=== PATIENT | female | born 1980 | race American Indian/Alaskan Native ===

== ENCOUNTER 2016-12-07 12:23 | Emergency (ER) | payer BC ==
[2016-12-07 12:31] VITALS: RESP 18
[2016-12-07 13:00] LABS: BASO % 0.2 % (0.0-2.0); EOS # 0.1 K/uL (0.0-0.7); EOS % 0.6 % (0.0-4.0); HEMATOCRIT 32.5 % (34.0-47.0); LYMPH # 0.8 K/uL (1.0-4.3); LYMPH % 9.9 % (20.0-40.0); MEAN CORPUSCULAR HEMOGLOBIN 26.4 pg (27.0-31.0); MEAN CORPUSCULAR HGB CONC 32.6 g/dL (33.0-37.0); MEAN PLATELET VOLUME 9.8 fl (7.2-11.7); MONO # 0.6 K/uL (0.0-0.8); MONO % 6.9 % (0.0-10.0); NEUT # 6.7 K/uL (1.8-7.0); NEUT % 82.4 % (50.0-75.0); NRBC % 0.1 % (0.0-0.0); PLATELET COUNT 165 K/uL (130-400); RED CELL DISTRIBUTION WIDTH 15.8 % (11.5-14.5); WHITE BLOOD COUNT 8.2 K/uL (4.8-10.8)
[2016-12-07 13:07] LABS: RBC URINE < 1 /hpf (0-3); URINE BACTERIA RARE (<OCC); URINE BILIRUBIN NEGATIVE (NEGATIVE); URINE BLOOD NEGATIVE (NEGATIVE); URINE COLOR STRAW (YELLOW); URINE GLUCOSE (UA) NEG (Normal); URINE KETONE NEGATIVE (NEGATIVE); URINE LEUKOCYTE ESTERASE NEG Leu/uL (Negative); URINE PROTEIN NEGATIVE (NEGATIVE); URINE UROBILINOGEN 0.2-1.0 mg/dL (0.2-1.0); WBC URINE 1 /hpf (0-5)
[2016-12-07 13:26] LABS: ALKALINE PHOSPHATASE 84 U/L (38-126); ALT/SGPT 44 U/L (9-52); AST/SGOT 31 U/L (14-36); BILIRUBIN,TOTAL 0.2 mg/dl (0.2-1.3); BLOOD UREA NITROGEN 6 mg/dl (7-17); CARBON DIOXIDE 26 mmol/L (22-30); CHLORIDE 104 mmol/L (98-107); GFR AFRICAN-AMERICAN > 60; GLUCOSE,RANDOM 79 mg/dL (65-105); POTASSIUM 3.9 MMOL/L (3.6-5.0); SODIUM 135 mmol/l (132-148); TOTAL PROTEIN 7.2 G/DL (6.3-8.2)
[2016-12-07 14:00] LABS: EOSINOPHIL 1 % (0-7); NEUTROPHIL 89 % (42-75); TOTAL CELLS COUNTED 100
[2016-12-07 14:02] LABS: LARGE PLATELETS PRESENT
--- NOTE | 2016-12-07 14:20 | ED PDOC ---
HPI: General Adult Time Seen by Provider: 12/07/16 12:44 Chief Complaint (Nursing): Dizziness/Lightheaded Chief Complaint (Provider): Dizziness History Per: Patient History/Exam Limitations: no limitations Onset/Duration Of Symptoms: Hrs Have you had recent travel within the past 21 days to any of the following countries: [place], [place], [place] or [place]?: No Current Symptoms Are (Timing): Still Present Additional Complaint(s): Lakeisha Hopper, a 36 year old female, who is 24 weeks presents to the ED for dizziness and sweats. The patient states that earlier today she was commuting [facility] by bus. She goes on to state that her bus was late and she was standing in the sun for hours and when the bus finally came they experienced heavy traffic. The patient reports that while on the bus she began to feel dizzy, sweaty and also felt as though she was going to pass out. Upon arrival to the hospital the patient was seen in labor and delivery and was cleared. The patient does appreciate movement and denies vaginal bleeding. Also denies vomiting headache, abdominal pain, chest pain and SOB. The patient has had one prior full term which had no complications and is currently only taking vitamins. Past Medical History Reviewed: Historical Data, Nursing Documentation, Vital Signs Vital Signs: Last Vital Signs Temp 98.4 F 12/07/16 12:27 Pulse 94 H 12/07/16 12:27 Resp 18 12/07/16 12:27 BP 128/78 12/07/16 12:27 Pulse Ox 98 12/07/16 14:43 - Medical History PMH: No Chronic Diseases - Surgical History Surgical History: No Surg Hx - Family History Family History: States: Unknown Family Hx - Home Medications Home Medications: Ambulatory Orders Medication Instructions Recorded Vit No.126/Iron/Folic 1 tab PO DAILY 12/07/16 [Classic Tablet] - Allergies Allergies/Adverse Reactions: Allergies Allergy/AdvReac Type Severity Reaction Status Date / Time No Known Allergies Allergy Verified 12/07/16 12:40 Review of Systems Constitutional: Positive for: Sweats Cardiovascular: Negative for: Chest Pain Respiratory: Negative for: Shortness of Breath Gastrointestinal: Negative for: Vomiting, Abdominal Pain Genitourinary Female: Negative for: Vaginal Bleeding Neurological: Positive for: Dizziness. Negative for: Headache Physical Exam - Reviewed Nursing Documentation Reviewed: Yes Vital Signs Reviewed: Yes - Physical Exam Appears: Positive for: Non-toxic, No Acute Distress Head Exam: Positive for: ATRAUMATIC, NORMOCEPHALIC Skin: Positive for: Normal Color, Warm, Dry Eye Exam: Positive for: Normal appearance, EOMI, PERRL ENT: Positive for: Normal ENT Inspection Neck: Positive for: Normal, Painless ROM, Supple Cardiovascular/Chest: Positive for: Regular Rate, Rhythm, Chest Non Tender. Negative for: Tachycardia Respiratory: Positive for: Normal Breath Sounds, Accessory Muscle Use. Negative for: Wheezing, Respiratory Distress Gastrointestinal/Abdominal: Positive for: Normal Exam, Bowel Sounds, Soft. Negative for: Tenderness, Guarding, Rebound Pelvic Exam: Positive for: Other (Fundus is above umbilicus.) Back: Positive for: Normal Inspection. Negative for: L CVA Tenderness, R CVA Tenderness Extremity: Positive for: Normal ROM. Negative for: Tenderness, Deformity, Swelling Lymphatic: Positive for: Normal Exam Neurologic/Psych: Positive for: Alert, Oriented, Gait - Laboratory Results Result Diagrams: 12/07/16 12:50 12/07/16 12:50 - ECG O2 Sat by Pulse Oximetry: 98 (RA) Pulse Ox Interpretation: Normal Medical Decision Making Medical Decision Makin:44 Initial Impression: 36 year old female presenting with dizziness and sweats Initial Plan: * EKG * CMP * CBC * Urinalysis * Reevaluation Patient's bloodwork ad urinalysis only revealed mild anemia without prior value to compare. EKG performed, normal sinus at 78 and sinus arrhythmia at normal intervals. Patient received IV fluids and cardiac monitoring for 2 hours without incident. No signs of acute neurological, cardiac, infectious or obstetric emergency. The patient will be discharged home with instructions to follow up with her OBGYN. Scribe Attestation Documented by Zoe Aragon acting as a scribe for Walter Carrasquillo III, MD. Provider Attestation All medical record entries made by the Scribe were at my direction and personally dictated by me. I have reviewed the chart and agree that the record accurately reflects my personal performance of the history, physical exam, medical decision making, and the department course for this patient. I have also personally directed, reviewed, and agree with the discharge instructions and disposition. Disposition - Clinical Impression Clinical Impression: Dizziness, Syncope, - Patient ED Disposition Is Patient to be Admitted: No Counseled Patient/Family Regarding: Studies Performed, Diagnosis, Need For Followup - Disposition Disposition: Routine/Home Disposition Time: 02:37 Condition: STABLE Additional Instructions: Followup with your OB in 1-3 days. Return to ER for any new or worsening symptoms. Drink plenty of water today. Instructions: Heat Exhaustion (ED), Syncope (ED), at 23 to 26 Weeks ( ED) Forms: [facility] (Maltese)
[2016-12-07 15:00] VITALS: BP 125/65; PULSE 81; TEMP 98.5; O2SAT 100
--- NOTE | 2016-12-08 15:30 | CARD ---
APPROVED REPORT EKG Measurement Heart [id number] VT [id number] <Conclusion> Normal sinus rhythm with sinus arrhythmia Normal ECG
== END 2016-12-07 15:10 | disposition home or self-care (01) ==
LOC: H.ER 12:23
DX: R42 Dizziness and giddiness (principal); T67.3XXA Heat exhaustion, anhydrotic, initial encounter; Z33.1 Pregnant state, incidental